=== PATIENT | female | born 1990 | race African-American/Black ===

== ENCOUNTER → 2021-02-05 | Outpatient (CLI) | payer OTHER ==
[~2021-02-05] MED LIST: AMIT10TA PO; ESCITALOPRAM OX20 MG PO; OXCA600T3 PO; TRAZ-118 PO; ZIPR40CA2 PO; birth control pill PO
--- NOTE | 2021-02-05 14:16 | PDOC1 ---
INITIAL PAIN CONSULT DATE OF SERVICE: DOS: DATE: 02/05/21 TIME: 14:10 CHIEF COMPLAINT: Chief Complaint: Neck and bilateral shoulder extremity pain HISTORY OF PRESENT ILLNESS: 30-year-old female presents history of pain in the neck and bilateral shoulders for about 12+ years, patient reports no specific injury or accident that she is aware but is been getting worse over time especially in the neck itself rating to the shoulders occasionally into the back of the head and neck patient reports is constant sharp stabbing throbbing shooting into the arms and shoulders aching in the neck burning in the neck and throbbing in the arms as well patient reports no loss of motor function and remains very strong but significant pain in the neck and shoulders upper extremities as noted patient reports it keeps her from sleeping multiple times during the night does not affect her bowel bladder control does affect her ability to walk although it is difficult to change positions when she has to turn her neck quickly or looks down such as with reading or studying. Patient reports her disability rating 0-10 10 being worst is a 9 with family home responsibilities recreation and self-care 10 with occupation/support activities patient did have an MRI scan of the cervical spine showing broad-based right central disc protrusion C3-4 broad-based central right central disc retrusion C6-7 and mild diffuse posterior disc bulge at C4-5 and C5-6 with mild degenerative disc changes with facet and foramina appear normal throughout. Patient reports no loss of motor function but fatigability the upper extremities with repetitive motions reaching overhead repetitively with her arms bilaterally right essentially equal to left. Patient has had physical therapy as well as chiropractic treatment in the past without significant long- term reduction in the pain. Patient continues to do stretching strength exercises now on her own as well as taking [id number] Tylenol and ibuprofen which help but only very small extent. PAST MEDICAL HISTORY: PMH: Asthma, obesity PREVIOUS SURGERIES: Past Surgical Hx: Shoulder surgery, skin graft and ankle ligament repair, sinus surgery, gastric sleeve CURRENT MEDICATIONS: Current Meds: See chart ALLERGIES; Allergies: Coded Allergies: No Known Drug Allergies (Unverified , 09/13/14) FAMILY HISTORY: Family Hx: Cancer, diabetes, arthritis, ocular problems, seizures SOCIAL HISTORY: Social Hx: Patient is under alcohol does not smoke not use any illegal illicit or recreatio nal drugs is single lives locally in [facility] and is a student REVIEW OF SYSTEMS: ROS: Positive for those items mentioned in history of present illness, all systems are reviewed, otherwise negative ,and are complete full and well-documented on patient's chart. PHYSICAL EXAM: VS: Blood pressure is 155/82 pulse 79 respirations 18 temperature 98.6 return to height 5 feet 2 inches weight is 334 pounds PE: PHYSICAL EXAMINATION: GENERAL: The patient is awake, alert, oriented, appropriate, very pleasant in demeanor HEENT: Shows normocephalic, atraumatic. Extraocular movements are intact and symmetrical. Oral cavity: Mucous membranes moist and pink. Dentition is in tact. NECK: Shows anterior throat supple without palpable lymphadenopathy noted. Swallow reflex symmetrical. CHEST: Shows normal on inspection. Breath sounds are clear bilaterally, distant no rales rhonchi or wheeze. HEART: Shows S1, S2 clear. No murmurs auscultated. ABDOMEN: Soft, nontender, nondistended, obese. No palpable organomegaly is noted. No rebound or guarding demonstrated. BACK: Shows spine grossly in the midline. Normal-appearing cervical lordotic curvature. Cervical paraspinous muscles show symmetrical with inspection, on palpation shows firm musculature throughout the upper middle lower decrease the paraspinous muscles and moderately tender diffusely throughout both without trigger points without atrophy hypertrophy without asymmetry with good rotation of motion both laterally as well as extension and flexion with some mild tenderness only with forward flexion. There is slightly increased thoracic kyphosis, some flattening of the lumbar lordotic curvature. EXTREMITIES: Upper extremities show deep tendon reflexes 2+ in the biceps and triceps tendons. 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 Peripheral pulses 2+ radial. No peripheral edema is noted bilaterally. Upper extremities are warm and dry to touch, equal in color and appearance. SKIN: Shows warm and dry, good turgor. No edema. No sores, rashes or bruising throughout. IMPRESSION: Impression: 30-year-old female with 12+ year history of neck bilateral shoulder and upper extremity pain with radicular qualities following a C6-7 dermatomal distribution bilaterally. MRI scan cervical spine as noted Asthma Obesity Plan: Options were discussed with the patient including serve medical management physical therapies interventional techniques. Patient elects interventional techniques. We discussed a cervical epidural steroid injections description as well as anatomical models to describe the procedure. Patient will wait for preauthorization with her insurance provider once approved we will have her plan to return for translaminar approach C6-7 level cervical epidural steroid injection with fluoroscopic guidance. The meantime patient continue with stretching strength exercises from previous physical therapy training and oral analgesics as currently. MAU HERNDON MD Feb 05, 2021 14:16
== END | disposition home or self-care (01) ==
LOC: PNCL 12:56
PROVIDERS: ATTEND Anesthesiology
DX: M54.2 Cervicalgia (principal); M25.512 Pain in left shoulder; M25.511 Pain in right shoulder; J45.909 Unspecified asthma, uncomplicated; E66.9 Obesity, unspecified; Z79.899 Other long term (current) drug therapy; Z98.890 Other specified postprocedural states; Z83.3 Family history of diabetes mellitus
CPT/HCPCS: 99205; G0463

== ENCOUNTER → 2021-02-19 | Outpatient (CLI) | payer OTHER ==
[~2021-02-19] MED LIST changes: +IOHEXOL 180 MG/ML 10 ML VIAL. ONE; +methylPREDNISolone ACETATE 40 MG/ML VIAL. ONE; +methylPREDNISolone ACETATE 80 MG/ML VIAL. ONE
--- NOTE | 2021-02-19 14:24 | PDOC ---
Progress Note - Pain Clinic Date of Service: DOS: DATE: 02/19/21 TIME: 14:20 Diagnosis: Dx: Cervical radiculopathy with cervical degenerative disc disease History or Present Illness: HPI: 30-year-old female for evaluation with pain base of the neck and shoulders more on the left than the right at this time but present bilaterally with radiation to the upper extremities and mainly the top of the shoulders posteriorly as well as the anterior biceps patient reports is a 9 on scale 10 is worst 8 on average 8 its least is an 8 today patient reports no loss of motor function but significant pain base of neck and shoulders again radiating down more on the left than the right aching sharp tight shooting burning stabbing on and off intensity worse with repetitive motions reaching over her head with her hands driving exacerbates it as does twisting and extension of the spine as well as forward flexion of the spine. Patient reports no bowel or bladder incontinence motor function significant fatigability of the upper extremities bilaterally. Physical Exam: VS: Blood pressure is 149/94 pulse 87 respirations 18 temperature 98.9 F is 5 feet 2 inches weight is 330 pounds PE: PHYSICAL EXAMINATION: GENERAL: The patient is awake, alert, oriented, appropriate, very pleasant in demeanor HEENT: Shows normocephalic, atraumatic. Extraocular movements are intact and symmetrical. Oral cavity: Mucous membranes moist and pink. Dentition is intact. NECK: Shows anterior throat supple without palpable lymphadenopathy noted. Swallow reflex symmetrical. CHEST: Shows normal on inspection. Breath sounds are clear bilaterally, coarse but no rales or rhonchi. HEART: Shows S1, S2 clear. No murmurs auscultated. ABDOMEN: Soft, nontender, nondistended, obese. No palpable organomegaly is noted. BACK: Shows spine grossly in the midline. Normal-appearing cervical lordotic curvature. Cervical paraspinous muscles show symmetrical inspection, on palpation some moderate tenderness diffusely throughout the upper middle lower decrease the paraspinous muscles bilaterally. Patient shows good rotation motion cervical spine both laterally with some minor pain with extension and moderately with forward flexion. There is slightly increased thoracic kyphosis, some minor flattening of the lumbar lordotic curvature. EXTREMITIES: Upper extremities show deep tendon reflexes 2+ in the biceps and tricep tendons. 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 Peripheral pulses are 2+ radial. No peripheral edema is noted bilaterally. Upper extremities are warm and dry to touch, equal in color and appearance. SKIN: Shows warm and dry, good turgor. No edema. No sores, rashes or bruising throughout. Procedure: Procedure: Options were discussed with the patient. Patient chart reviews her current medication regimen updated current review of systems updated today as well. We will proceed with a cervical epidural steroid injection today with fluoroscopic guidance. Risks were discussed including but not limited to: Bleeding, infection, possibility of epidural hematoma and subsequent neurological compromise, dural puncture, headaches, spinal cord and/or nerve damage, side effects of steroid medication, and poor results regarding pain control. Patient understands and wished to proceed. Patient will return to clinic in approximate 2 weeks for follow-up, was counseled as to return appointment, activity level, and side effect to be aware of. Medication Injected: Med Injected: Procedure cervical epidural steroid injection at the C6-7 level, using local anesthetic under sterile prep and drape using C-arm fluoroscopic guidance under local anesthesia medications injected ;120 mg Depo-Medrol +5 mL normal saline and 2 mL contrast; condition at discharge is stable patient tolerated procedure well. and had no complications Condition at Discharge: Condition at Discharge: Condition at discharge stable, patient Allyn the procedure well and had no complications. MAU HERNDON MD Feb 19, 2021 14:24
--- NOTE | 2021-02-19 14:25 | PDOC4 ---
Procedure Note: ICD 10 Code: ICD 10 Code: M54.12 M50.30 Procedure Note: Patient was consented for cervical epidural steroid injection with fluoroscopic guidance. Risks were discussed including but not limited to: Bleeding, infection, possibility of epidural hematoma and subsequent neurological compromise, dural puncture, headaches, spinal cord and/or nerve damage, side effects of steroid medication, and poor results regarding pain control. Patient understands and wished to proceed. Procedure cervical epidural steroid injection at the C6-7 level, using local anesthetic under sterile prep and drape using C-arm fluoroscopic guidance under local anesthesia medications injected ;120 mg Depo-Medrol +5 mL normal saline and 2 mL contrast; condition at discharge is stable patient tolerated procedure well. and had no complications MAU HERNDON MD Feb 19, 2021 14:25
== END | disposition home or self-care (01) ==
LOC: PNCL 13:28
PROVIDERS: ATTEND Anesthesiology
DX: M50.10 Cervical disc disorder with radiculopathy, unspecified cervical region (principal); Z79.899 Other long term (current) drug therapy
CPT/HCPCS: 62321; J1030; J1040; Q9965

== ENCOUNTER → 2021-03-05 | Outpatient (CLI) | payer OTHER ==
[~2021-03-05] MED LIST changes: -IOHEXOL 180 MG/ML 10 ML VIAL. ONE; -methylPREDNISolone ACETATE 40 MG/ML VIAL. ONE; -methylPREDNISolone ACETATE 80 MG/ML VIAL. ONE
--- NOTE | 2021-03-05 15:40 | PDOC ---
Progress Note - Pain Clinic Date of Service: DOS: DATE: 03/05/21 TIME: 15:34 Diagnosis: Dx: Cervical degenerative disease with cervical spondylosis History or Present Illness: HPI: 30-year-old female returns for follow-up status post cervical epidural steroid injection x1. Patient reports no significant improvement with the injection and the pain is beginning to be more localized only to the neck now not radiating the upper extremities but the pain in the neck is essentially the same patient reports a 10 on scale 10 at all times worst least and average is a 10 today patient reports no loss of motor function but the upper extremities are doing much better without as much pain in the right side patient reports no radiating pain at this time but significant pain in the neck itself with a "popping" sensation with rotation of motion both lateral as well as extension and flexion. Patient reports no loss of motor function but significant fatigability with the upper extremities but no radiating pain patient reports she is "begging for relief" patient reports she has to travel as she has 2 funerals in the family coming up in the next week and will be flying and ask for a neck brace as well. Patient reports pain still difficult with activities walking standing sitting for prolonged periods specially with sitting upright sent her head becomes very "heavy" with sitting also looking at her computer or looking down towards a book or phone. Patient reports no deficits, no significant headaches. Physical Exam: VS: Blood pressure is 142/90 pulse 90 respirations 18 temperature 98.1 F weight is 339 pounds PE: PHYSICAL EXAMINATION: GENERAL: The patient is awake, alert, oriented, appropriate, very pleasant in demeanor HEENT: Shows normocephalic, atraumatic. Extraocular movements are intact and symmetrical. Oral cavity: Mucous membranes moist and pink. Dentition is intact. NECK: Shows anterior throat supple without palpable lymphadenopathy noted. Swallow reflex symmetrical. CHEST: Shows normal on inspection. Breath sounds are clear bilaterally, no rales or rhonchi. HEART: Shows S1, S2 clear. No murmurs auscultated. ABDOMEN: Soft, nontender, nondistended, obese. No palpable organomegaly is noted. BACK: Shows spine grossly in the midline. Normal-appearing cervical lordotic curvature. Cervical paraspinous muscles show symmetrical with inspection, palpation some moderate tenderness diffusely in the mid to lower distribution the paraspinous muscles bilaterally with moderate to deep palpation no radiation is demonstrated. Patient shows good rotation of motion with significant tenderness with extension but not with forward flexion also right and left lateral rotation shows significant tenderness both laterally right and left past 45 degrees but without radiation. There is slightly increased thoracic kyphosis, some minor flattening of the lumbar lordotic curvature. EXTREMITIES: Upper extremities show deep tendon reflexes 2+ in the biceps and triceps tendons. 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 Peripheral pulses are 2+ radial. No peripheral edema is noted bilaterally. Upper extremities are warm and dry to touch, equal in color and appearance. SKIN: Shows warm and dry, good turgor. No edema. No sores, rashes or bruising throughout. Procedure: Procedure: Options discussed with patient. Patient chart reviews her current medication regimen updated current review of systems updated today as well. We will preauthorize patient for cervical facet medial branch blocks bilaterally at the C4-5 C5-6 and C6-7 levels. In the meantime, patient continue with stretching strength exercise as well as oral analgesics as currently. Also, will prescribe soft cervical collar for support to use while patient is traveling. Medication Injected: Med Injected: None Condition at Discharge: Condition at Discharge: Condition at discharge is stable. MAU HERNDON MD Mar 05, 2021 15:40
== END | disposition home or self-care (01) ==
LOC: PNCL 14:29
PROVIDERS: ATTEND Anesthesiology
DX: M47.26 Other spondylosis with radiculopathy, lumbar region (principal); Z79.899 Other long term (current) drug therapy
CPT/HCPCS: 99212; G0463

== ENCOUNTER → 2021-05-08 | Outpatient (CLI) | payer OTHER ==
[~2021-05-08] MED LIST changes: +BUPIVACAINE MPF 0.25% 10 ML VIAL. ONE; +DEXAMETHASONE PRES.FREE 10 MG/ML VIAL. ONE; +IOHEXOL 180 MG/ML 10 ML VIAL. ONE
--- NOTE | 2021-05-08 13:29 | PDOC ---
Progress Note - Pain Clinic Date of Service: DOS: DATE: 05/08/21 TIME: 13:24 Diagnosis: Dx: Cervical degenerative disease with cervical spondylosis History or Present Illness: HPI: 30-year-old female returns for follow-up status post cervical epidural steroid injection with minimal improvement long-term. Patient has had pain now different in quality in the neck itself without radiation the upper extremities slightly more on the right than the left but present bilaterally worse with repetitive motions reaching with forward flexion of the cervical spine rated a 9 on scale 10 is worst 9 on average 8 its least and is an 8 today patient reports aching sharp can be tight and shooting and a "popping" sensation with turning the neck right and left patient Martin tingling and stabbing can be severe but is on and off in intensity patient reports it wakes her from sleep about once a night she does take a sleeping medication to help her sleep patient reports no loss of motor function no radiation the upper extremities significant pain in the neck itself which becomes severe at times as noted. Patient reports no new deficits or motor loss with the upper extremities. Physical Exam: VS: Blood pressure is 141/68 pulse 77 respirations 18 temperature 98.2 F height is 5 foot 3 inches weight is 340 pounds. PE: PHYSICAL EXAMINATION: GENERAL: The patient is awake, alert, oriented, appropriate, very pleasant in demeanor HEENT: Shows normocephalic, atraumatic. Extraocular movements are intact and symmetrical. Oral cavity: Mucous membranes moist and pink. Dentition is intact. NECK: Shows anterior throat supple without palpable lymphadenopathy noted. Swallow reflex symmetrical. CHEST: Shows normal on inspection. Breath sounds are clear bilaterally, distant but no rales or rhonchi. HEART: Shows S1, S2 clear. No murmurs auscultated. ABDOMEN: Soft, nontender, nondistended. No palpable organomegaly is noted. BACK: Shows spine grossly in the midline. Normal-appearing cervical lordotic curvature. Cervical paraspinous muscles show symmetrical inspection on palpation some moderate tenderness diffusely in the mid and upper distribution cervical paraspinous musculature but without radiation without atrophy hypertrophy no trigger points. Patient shows good rotation motion cervical spine with significant tenderness with extension as well as with forward flexion right left lateral Tatian is performed but is with some degree of guarding bilaterally but without limitation. There is slightly increased thoracic kyphosis, some minor flattening of the lumbar lordotic curvature. EXTREMITIES: Upper extremities show deep tendon reflexes 2+ in the biceps and triceps tendons. 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 Peripheral pulses are 2 radial. No peripheral edema is noted bilaterally. Upper extremities are warm and dry to t ouch, equal in color and appearance. SKIN: Shows warm and dry, good turgor. No edema. No sores, rashes or bruising throughout. Procedure: Procedure: Options were discussed with patient. Patient's old chart was reviewed as her current medication regimen updated current review of systems updated today as well. We will proceed with bilateral cervical facet medial branch blocks at the C3-4, C4-5, C5-6 levels with fluoroscopic guidance. Risks were discussed including but not limited to: Bleeding, infection, possibility of epidural hematoma and subsequent neurological compromise, dural puncture, headaches, spinal cord and/or nerve damage, side effects of steroid medication, and poor results regarding pain control. Patient understands and wished to proceed. Patient will return to the clinic in approximately 2 weeks for follow-up, was counseled as to return appointment, active level, and side effect to be aware of. Medication Injected: Med Injected: Under sterile prep and drape patient in prone position using C-arm fluoroscopic guidance patient cervical spine was notified in AP view with slight craniocaudad view to visualize the waist of the cervical vertebrae bilaterally. Using 1% lidocaine skin was topically anesthetized over the waist of the vertebrae for starting on the right side at C3-4 C4-5 C5-6. Using 22-gauge Quincke needle was then advanced through the anesthetized area to rest in contact with the waist of the vertebral body at each level. Lateral views were then used to confirm position of the needles at the facet level and slightly posterior with contact i n the region of the medial branches at each level. Stylets were removed, and 0.5 cc of contrast was injected without vascular uptake at each level with good local spread at the level of the medial branches. This was repeated for the left side at the same levels and same technique and fluoroscopic views. Each needle showed negative aspiration and good spread of contrast. At this time each level receive 0.5 cc of bupivacaine for a total of 8 cc and total of 20 mg of dexamethasone. Boaz were removed sterile bandages were applied. Patient tolerated procedure well and had no complications. Condition at Discharge: Condition at Discharge: Condition at discharge is stable, patient tolerated procedure well and had no complications. MAU HERNDON MD May 08, 2021 13:29
== END | disposition home or self-care (01) ==
LOC: PNCL 12:36
PROVIDERS: ATTEND Anesthesiology
DX: M47.812 Spondylosis without myelopathy or radiculopathy, cervical region (principal); M50.30 Other cervical disc degeneration, unspecified cervical region; Z79.899 Other long term (current) drug therapy
CPT/HCPCS: 64490; 64491; 64492; J1100; J3490; Q9965

== ENCOUNTER → 2021-05-26 | Outpatient (CLI) | payer OTHER ==
[~2021-05-26] MED LIST changes: -BUPIVACAINE MPF 0.25% 10 ML VIAL. ONE; -DEXAMETHASONE PRES.FREE 10 MG/ML VIAL. ONE; -IOHEXOL 180 MG/ML 10 ML VIAL. ONE
--- NOTE | 2021-05-26 08:50 | PDOC ---
Progress Note - Pain Clinic Date of Service: DOS: DATE: 05/26/21 TIME: 08:44 Diagnosis: Dx: Cervical spondylosis Cervical degenerative disc disease Cervical radiculopathy History or Present Illness: HPI: 30-year-old female returns for follow-up status post cervical epidural steroid injection x1, cervical bilateral facet medial branch blocks with reporting no improvement whatsoever with any procedure performed. Patient reports still significant pain in the right side greater than left in the mid neck base of the neck on the right side is a 10 on scale 10 is worst least and average over the past week and a 10 today patient reports is keeping her awake at night worse with upright position walking standing sitting driving looking especially to the right past about 45degrees patient does have some radiation into the right shoulder and posterior shoulder region but not into the upper extremity as she had previously patient reports pain is sharp and tight burning in the neck can be severe and is on and off in intensity but always present. Patient is somewhat discouraged as she has had physical therapy as well cervical traction and is worried that she may need surgical intervention. I reassured her today that that is not always the case and she wishes to discuss this with her neur osurgeon, once again, by her request. Patient reports no deficits no loss of motor function but some fatigability with the right upper extremity and shoulder with repetitive motions or reaching overhead. Physical Exam: VS: Blood pressure is 142/89 pulse 86 respirations are 18 temperature 90.4 F height is 5 feet 3 inches weight is 342 pounds. PE: PHYSICAL EXAMINATION: GENERAL: The patient is awake, alert, oriented, appropriate, very pleasant in demeanor HEENT: Shows normocephalic, atraumatic. Extraocular movements are intact and symmetrical. Oral cavity: Mucous membranes moist and pink. Dentition is intact. NECK: Shows anterior throat supple without palpable lymphadenopathy noted. Swallow reflex symmetrical. CHEST: Shows normal on inspection. Breath sounds are clear bilaterally, no rales rhonchi or wheezes auscultated. HEART: Shows S1, S2 clear. No murmurs auscultated. ABDOMEN: Soft, nontender, nondistended, obese. No palpable organomegaly is no garland. BACK: Shows spine grossly in the midline. Normal-appearing cervical lordotic curvature.Cervical paraspinous muscles show symmetrical inspection on palpation some moderate tenderness diffusely throughout the upper middle lower disputes the paraspinous muscle slightly more tender on the right than the left without asymmetry without atrophy hypertrophy without trigger points. Patient shows limited rotation of motion secondary to pain to the right past 45 degrees left is past 45 degrees closer 90 degrees but with pain on the right side as well this is worse with extension of the cervical spine on the right side but without radiation forward flexion is performed with less pain but still some pain reported on the right side without radiation. There is slightly increased thoracic kyphosis, some minor flattening of the lumbar lordotic curvature. EXTREMITIES: Upper extremities show deep tendon reflexes 2+ in the biceps and triceps tendons. Motor exam is 5 on a scale of 5 with right transportation officer, biceps and triceps flexion and 5/5 on the left. Peripheral pulses are 2+ radial. No peripheral edema is noted bilaterally. Upper extremities are warm and dry to touch, equal in color and appearance. SKIN: Shows warm and dry, good turgor. No edema. No sores, rashes or bruising throughout. Procedure: Procedure: Options were discussed with the patient. Patient's old chart was reviewed as was her current medication regimen updated and current review of systems updated today as well. Patient would like to follow-up with her neurosurgeon, although we discussed there may not be a good surgical alternative for the patient she would like to revisit this. We discussed that perhaps additional treatment may be necessary with medial branch blocks however she is adamantly against this at this time. We also discussed potential further physical therapies patient again reports she has tried these and is not optimistic about this helping as well. Patient will follow up this time on as-needed basis. Medication Injected: Med Injected: None Condition at Discharge: Condition at Discharge: Condition at discharge is stable. MAU HERNDON MD May 26, 2021 08:50
== END | disposition home or self-care (01) ==
LOC: PNCL 08:28
PROVIDERS: ATTEND Anesthesiology
DX: M50.10 Cervical disc disorder with radiculopathy, unspecified cervical region (principal); M47.22 Other spondylosis with radiculopathy, cervical region; Z79.899 Other long term (current) drug therapy
CPT/HCPCS: 99212; G0463